=== PATIENT | male | born 1985 | race Caucasian/White ===

== ENCOUNTER → 2021-05-11 | Day surgery (SDC) | payer BC ==
[~2021-05-11] VITALS: Ht 172.7 cm; Wt 190.4 kg
[~2021-05-11] MED LIST: COZAAR 50MG50 MG/TAB PO; HYZAAR 25 MG-101 TAB PO; PROTONIX 40MG T40 MG PO
[2021-05-11 09:30] VITALS: BP 166/84; PULSE 84; TEMP 98
[2021-05-11 09:45] VITALS: BP 158/88; PULSE 75
[2021-05-11 10:00] VITALS: BP 161/80; PULSE 82
--- NOTE | 2021-05-11 14:15 | NUR ---
PT WAS ALERT AND ORIENTATED X3. PT DENIES PAIN OR NAUSEA. PT SPOUSE AT BEDSIDE. WILL CONT TO MONITOR.
--- NOTE | 2021-05-11 14:20 | NUR ---
PT TOLERATING PO'S WITHOUT DIFFICULTY. DENIES NAUSEA OR VOMITING. IVF WERE DC'D. WILL CONT TO MONITOR.
--- NOTE | 2021-05-11 14:22 | NUR ---
PT SIGNED DC'D INSTRUCTIONS AND RECIEVED PT EDUCATION. LUNGS CLEAR, HRR, BOWEL SOUNDS PRESENT. IV DC'D TO RIGHT HAND, PT TOLERATED WELL.
== END ==
LOC: SDCO 07:45
DX: R19.5 Other fecal abnormalities (principal); K64.1 Second degree hemorrhoids; I10 Essential (primary) hypertension; G47.33 Obstructive sleep apnea (adult) (pediatric); E66.9 Obesity, unspecified
CPT/HCPCS: J2704; J7120